=== PATIENT | female | born 1980 | race Caucasian/White ===

== ENCOUNTER 2021-12-18 22:14 | Emergency (ER) | payer OTHER | END 2021-12-18 23:13 | LOC: FER 22:14 | DX: Z02.79 Encounter for issue of other medical certificate (principal); R56.9 Unspecified convulsions; F17.210 Nicotine dependence, cigarettes, uncomplicated; Z53.29 Procedure and treatment not carried out because of patient's decision for other reasons; V49.50XA Passenger injured in collision with unspecified motor vehicles in traffic accident, initial encounter | CPT/HCPCS: 99284 ==